=== PATIENT | male | born 1995 | race Caucasian/White ===

== ENCOUNTER 2021-03-26 14:31 | Emergency (ER) | payer MEDICAID, OTHER ==
[~2021-03-26] VITALS: Ht 170.2 cm; Wt 74.8 kg
[2021-03-26 14:35] VITALS: BP 143/76
--- NOTE | 2021-03-26 14:39 | NUR ---
PT TAKEN TO BED 8.
--- NOTE | 2021-03-26 14:41 | NUR ---
26/M c/o mid sternal chest pain yesterday. Pt states the pain was non provoked. Pt denies having pain at this time and would like to be checked.
--- NOTE | 2021-03-26 14:59 | NUR ---
BJORN Cao is evaluating the patient at bedside.
[2021-03-26] MEDS ORDERED: IBUP-2213 PO (15:17)
== END 2021-03-26 15:30 | disposition home or self-care (01) ==
LOC: MED 14:31
DX: R07.89 Other chest pain (principal); F41.9 Anxiety disorder, unspecified; R03.0 Elevated blood-pressure reading, without diagnosis of hypertension
CPT/HCPCS: 93005; 99283; 99284

== ENCOUNTER 2022-02-15 13:11 | Emergency (ER) | payer MEDICAID, OTHER ==
[~2022-02-15] VITALS: Ht 170.2 cm; Wt 79.8 kg
[~2022-02-15 13:11] MED LIST: IBUP-2213 PO
[2022-02-15 13:28] VITALS: BP 158/64
[2022-02-15] MEDS ORDERED: [UNRECOGNIZED DRUG - CODE] TP (15:13)
[2022-02-15] MEDS ORDERED: NAPR-54 PO (15:13)
--- NOTE | 2022-02-15 15:21 | NUR ---
PT SEEN AND D/C BY BJORN ELDER, NO NURSING INTERVENTIONS PROVIDED
--- NOTE | 2022-02-15 15:22 | NUR ---
Patient discharged with v/s stable. Written and verbal after care instructions ABOUT [facility] given and explained. Patient alert, oriented and verbalized understanding of instructions. Ambulatory with steady gait. All questions addressed prior to discharge. ID band removed. Patient advised to follow up with PMD. Rx of ZYCLARA AND NAPROXEN given. Patient educated on indication of medication including possible reaction and side effects. Opportunity to ask questions provided and answered.
== END 2022-02-15 15:22 | disposition home or self-care (01) ==
LOC: MED 13:11
DX: B07.9 Viral wart, unspecified (principal); Z79.899 Other long term (current) drug therapy
CPT/HCPCS: 99283